=== PATIENT | female | born 1995 | race African-American/Black ===

== ENCOUNTER 2019-01-31 17:14 | Emergency (ER) | payer MEDICAID, OTHER ==
[~2019-01-31] VITALS: Ht 165.1 cm; Wt 92.1 kg
[2019-01-31 17:22] VITALS: BP 109/69
--- NOTE | 2019-01-31 18:22 | NUR ---
PT AMBULATED TO BED 09.
--- NOTE | 2019-01-31 19:09 | NUR ---
REPORT GIVEN TO PREPLEATER RN.
--- NOTE | 2019-01-31 19:10 | NUR ---
RECEIVED REPORT FROM LEONID CARRILLO.
--- NOTE | 2019-01-31 19:18 | NUR ---
PT BIB [facility], THROAT PAIN, BODY ACHES AND COUGH X 1 MONTH. PT REPORTS 7/10 CONSTANT PAIN. PT ALSO STATES SHE WAS SEEN AT [facility] 2 WEEKS AGO AND WAS GIVEN PROMETHAZINE WHICH HAS NOT PROVIDED RELIEF OF SYMPTOMS. CH[place]G [place], SOB. -- PMH: DENIES -- RX: DENIES
[2019-01-31] MEDS ORDERED: ACETAMIN/CODEINE 120/12MG-5ML 5 ML UDC PO ONE (19:35)
[2019-01-31] MEDS ORDERED: PHENYLEPHRINE 0.5% 15 ML BTL NS ONE (19:35)
[2019-01-31 20:28] VITALS: BP 130/86
--- NOTE | 2019-01-31 20:28 | NUR ---
Patient discharged with v/s stable. Written and verbal after care instructions given and explained. Patient alert, oriented and verbalized understanding of instructions. Ambulatory with steady gait. All questions addressed prior to discharge. ID band removed. Patient advised to follow up with PMD. Rx of Sudafed and Guaiatussin AC given. Patient educated on indication of medication including possible reaction and side effects. Opportunity to ask questions provided and answered.
== END 2019-01-31 20:28 | disposition home or self-care (01) ==
LOC: MED 17:14
DX: J20.9 Acute bronchitis, unspecified (principal)
CPT/HCPCS: 87804; 99283

== ENCOUNTER 2019-06-15 15:58 | Emergency (ER) | payer MEDICAID ==
[~2019-06-15] VITALS: Ht 165.1 cm; Wt 93.9 kg
[2019-06-15 16:06] VITALS: BP 133/77
[2019-06-15 16:20] VITALS: BP 133/77
--- NOTE | 2019-06-15 16:27 | NUR ---
pt c/o right knee pain s/p mechanical trip and fall last night onto concrete. pain 8/10 at this time. cms intact at the foot . slight swelling. no redness , skin tear or tendernes noted. pain gets bad with movement. denies any past medical hx. no known allergies. x-ray at the bedside. pt sitting comfortably in her bed. hx denies
[2019-06-15] MEDS ORDERED: IBUPROFEN 600 MG TAB PO ONE (16:35)
== END 2019-06-15 17:00 | disposition home or self-care (01) ==
LOC: MED 15:58
DX: S83.91XA Sprain of unspecified site of right knee, initial encounter (principal); F12.10 Cannabis abuse, uncomplicated; W22.8XXA Striking against or struck by other objects, initial encounter; Y93.01 Activity, walking, marching and hiking; Y92.89 Other specified places as the place of occurrence of the external cause; Y99.8 Other external cause status
CPT/HCPCS: 73562; 99283; Q0092